=== PATIENT | male | born 2000 | race Caucasian/White ===

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

== ENCOUNTER 2020-03-16 19:43 | Emergency (ER) | payer MEDICAID ==
[~2020-03-16] VITALS: Ht 177.8 cm; Wt 106.4 kg
[2020-03-16 20:08] VITALS: BP 147/90
== END 2020-03-16 22:29 | disposition home or self-care (01) ==
LOC: ED 22:20
DX: B34.9 Viral infection, unspecified (principal); Z20.828 Contact with and (suspected) exposure to other viral communicable diseases; R06.02 Shortness of breath; R05 Cough; R00.0 Tachycardia, unspecified
CPT/HCPCS: 87635; 93005; 99284

== ENCOUNTER 2020-03-25 15:51 | Emergency (ER) | payer MEDICAID ==
[~2020-03-25] VITALS: Ht 177.8 cm; Wt 105.0 kg
[2020-03-25 16:03] VITALS: BP 153/95
== END 2020-03-25 16:23 | disposition home or self-care (01) ==
LOC: ED 16:17
DX: S09.90XA Unspecified injury of head, initial encounter (principal); F07.81 Postconcussional syndrome; W01.198A Fall on same level from slipping, tripping and stumbling with subsequent striking against other object, initial encounter; Y93.89 Activity, other specified; Y92.89 Other specified places as the place of occurrence of the external cause; Y99.0 Civilian activity done for income or pay
CPT/HCPCS: 99281

== ENCOUNTER 2020-11-21 13:32 | Emergency (ER) | payer MEDICAID ==
[~2020-11-21] VITALS: Ht 180.3 cm; Wt 111.9 kg
[2020-11-21 13:46] VITALS: BP 150/82
--- NOTE | 2020-11-21 13:57 | NUR ---
FIRST CONTACT: body aches, [place] fever x3 days with nausea. sx have resolved. recent COVID exposure. wants a COVID test. has had first step of COVID vaccine. PT TO ROOM WITH STEADY GAIT ATTACHED TO MONITORS. GOVIND. JAVED. AWAITING ORDERS.
--- NOTE | 2020-11-21 14:00 | NUR ---
CHETAN TOLLIVER TO BEDSIDE FOR EVALUATION.
--- NOTE | 2020-11-21 14:52 | NUR ---
Patient given discharge instructions and they have confirmed that they understand the instructions. Patient ambulatory with steady gait. NAD, all questions answered appropriately, denies additional needs at this time. No personal belongings left in room after discharge.
== END 2020-11-21 14:53 | disposition home or self-care (01) ==
LOC: ED 14:12
DX: B34.9 Viral infection, unspecified (principal); Z20.822 Contact with and (suspected) exposure to COVID-19; R00.0 Tachycardia, unspecified
CPT/HCPCS: 87081; 87880; 99283; U0003; U0005